=== PATIENT | female | born 1935 | race Caucasian/White ===

== ENCOUNTER 2017-04-20 11:49 | Emergency (ER) | payer MEDICARE, OTHER ==
[2017-04-20] MEDS ORDERED: Albuterol/Ipratropium 3.0-0.5 MG/3 ML Neb Soln NEB ONE (12:25)
--- NOTE | 2017-04-20 12:31 | EDM.PDOC ---
ED HPI GENERAL MEDICAL PROBLEM - General Chief Complaint: Respiratory Problem Stated Complaint: SOB Time Seen by Provider: 04/20/17 12:06 Source of Information: Reports: Patient, Family History Limitations: Reports: No Limitations - History of Present Illness INITIAL COMMENTS - FREE TEXT/NARRATIVE: The patient is an 82-year-old female who comes in with a chief complaint of cough. The patient states she's felt ill for over a week now. She's had a cough. It is sometimes productive. She has some mild shortness of breath associated with the cough. No chest pain. No known fever. She did see a provider at a walk-in clinic about 6 days ago she was prescribed albuterol and a steroid taper and has been taking these as prescribed but feels that she is getting worse. No pain with inspiration. No abdominal pain or vomiting or diarrhea. No urinary symptoms. No lower extremity pain or swelling. - Related Data Allergies Allergy/AdvReac Type Severity Reaction Status Date / Time Penicillins Allergy Cannot Verified 04/20/17 11:54 Remember Home Meds: Home Meds Aspirin [Halfprin] 81 mg PO DAILY 09/22/13 [History] Losartan [Cozaar] 50 mg PO DAILY 09/22/13 [History] Albuterol Sulfate 1.25 mg IH 04/20/17 [History] Amitriptyline [Elavil] 25 mg PO BEDTIME 04/20/17 [History] Benzonatate [Tessalon Perles] 100 mg PO BID PRN #30 cap 04/20/17 [Rx] Doxycycline [Vibramycin] 100 mg PO Q12HR #24 cap 04/20/17 [Rx] Methylprednisolone [IJD: Methylprednisolone] 4 mg PO 04/20/17 [History] Social & Family History - Tobacco Use Smoking Status *Q: Never Smoker Second Hand Smoke Exposure: No - Alcohol Use Days Per Week of Alcohol Use: 0 - Recreational Drug Use Recreational Drug Use: No ED ROS GENERAL - Review of Systems Review Of Systems: See Below Constitutional: Denies: Fever HEENT: Reports: No Symptoms Respiratory: Reports: Shortness of Breath, Cough Cardiovascular: Denies: Chest Pain, Edema Endocrine: Reports: No Symptoms GI/Abdominal: Reports: No Symptoms. Denies: Vomiting : Reports: No Symptoms Musculoskeletal: Reports: No Symptoms Skin: Reports: No Symptoms Neurological: Reports: No Symptoms Psychiatric: Reports: No Symptoms Hematologic/Lymphatic: Reports: No Symptoms ED EXAM, GENERAL - Physical Exam Exam: See Below Exam Limited By: No Limitations General Appearance: Alert, WD/WN, No Apparent Distress Eye Exam: Bilateral Eye: Normal Inspection Ears: Normal External Exam Nose: Normal Inspection Throat/Mouth: Normal Inspection, Normal Oropharynx, No Airway Compromise, Other (hoarse voice) Head: Atraumatic, Normocephalic Neck: Normal Inspection, Supple, Non-Tender Respiratory/Chest: No Accessory Muscle Use, Chest Non-Tender, Other (few scattered wheezes and crackles) Cardiovascular: Normal Peripheral Pulses, No Edema, No Murmur, No Rub, Irregularly Irregular GI/Abdominal: Soft, Non-Tender, No Distention. No: Rebound Back Exam: Normal Inspection Extremities: Normal Inspection. No: Pedal Edema Neurological: Alert, Oriented, Normal Cognition, No Motor/Sensory Deficits Psychiatric: Normal Affect, Normal Mood Skin Exam: Warm, Dry, Intact, Normal Color, No Rash Course - Vital Signs Last Recorded V/S: Last Vital Signs Temp 36.4 C 04/20/17 11:54 Pulse 100 04/20/17 11:54 Resp 26 H 04/20/17 11:54 BP 120/77 04/20/17 11:54 Pulse Ox 96 04/20/17 12:25 - Orders/Labs/Meds Orders: Active Orders 24 hr Category Date Time Status EKG 12 Lead [EKG Documentation Completion] [RC] STAT Care 04/20/17 12:25 Active RT Aerosol Therapy [RC] ASDIRECTED Care 04/20/17 12:25 Active Chest 1V Frontal [CR] Stat Exams 04/20/17 12:25 Taken CULTURE BLOOD [BC] Stat Lab 04/20/17 12:45 Received CULTURE BLOOD [BC] Stat Lab 04/20/17 13:00 Received Blood Culture x2 Reflex Set [OM.PC] Stat Oth 04/20/17 12:25 Ordered Labs: Laboratory Tests 04/20/17 04/20/17 04/20/17 Range/Units 12:45 12:45 12:45 WBC 10.01 (3.98-10.04) K/mm3 RBC 3.74 L (3.98-5.22) M/mm3 Hgb 12.5 (11.2-15.7) gm/L Hct 37.5 (34.1-44.9) % MCV 100.3 H (79.4-94.8) fl MCH 33.4 H (25.6-32.2) pg MCHC 33.3 (32.2-35.5) g/dl RDW Std Deviation 43.8 (36.4-46.3) fL Plt Count 259 (182-369) K/mm3 MPV 10.3 (9.4-12.3) fl Neut % (Auto) 70.7 (34.0-71.1) % Lymph % (Auto) 10.4 L (19.3-51.7) % [place] % (Auto) 18.3 H (4.7-12.5) % Eos % (Auto) 0.1 L (0.7-5.8) Baso % (Auto) 0.2 (0.1-1.2) % Neut # (Auto) 7.08 H (1.56-6.13) K/mm3 Lymph # (Auto) 1.04 L (1.18-3.74) K/mm3 [place] # (Auto) 1.83 H (0.24-0.36) K/mm3 Eos # (Auto) 0.01 L (0.04-0.36) K/mm3 Baso # (Auto) 0.02 (0.01-0.08) K/mm3 Manual Slide Review Abnormal smear Sodium 140 (136-145) mEq/L Potassium 4.0 (3.5-5.1) mEq/L Chloride 104 (98-107) mEq/L Carbon Dioxide 27 (21-32) mEq/L Anion Gap 13.0 (5-15) BUN 17 (7-18) mg/dL Creatinine 1.0 (0.55-1.02) mg/dL Est Cr Clr Drug Dosing 35.49 mL/min Estimated GFR (MDRD) 53 (>60) mL/min BUN/Creatinine Ratio 17.0 (14-18) Glucose 112 (83-115) mg/dL Lactic Acid 1.5 (0.4-2.0) mmol/L Calcium 9.3 (8.5-10.1) mg/dL Total Bilirubin 0.9 (0.2-1.0) mg/dL AST 19 (15-37) U/L ALT 25 (14-59) U/L Alkaline Phosphatase 54 (46-116) U/L Troponin I < 0.017 (0.00-0.056) ng/mL NT-Pro-B Natriuret Pep 907 H (0-450) pg/mL Total Protein 7.3 (6.4-8.2) g/dl Albumin 3.2 L (3.4-5.0) g/dl Globulin 4.1 gm/dL Albumin/Globulin Ratio 0.8 L (1-2) Meds: Medications Discontinued Medications Generic Name Dose Route Start Last Admin Trade Name Freq PRN Reason Stop Dose Admin Albuterol/Ipratropium 3 ml 04/20/17 12:25 04/20/17 12:36 Duoneb 3.0-0.5 Mg/3 Ml NEB 04/20/17 12:26 3 ml ONETIME ONE Administration Doxycycline Hyclate 100 mg 04/20/17 13:42 Vibramycin PO 04/20/17 13:43 ONETIME ONE - Re-Assessments/Exams Free Text/Narrative Re-Assessment/Exam: 04/20/17 13:49 EKG shows NSR with some atrial premature complexes. No significant ST/T abnormality. Intervals normal. CXR shows RLL atelectasis slightly increased compared to prior. Mild interestitial prominence. Labs all normal. Suspect bronchitis. Given her age and failure to improve with steroids/albuterol, will treat with doxycycline. Discussed return precautions and need for follow-up. Departure - Departure Time of Disposition: 13:51 Disposition: Home, Self-Care 01 Clinical Impression: Bronchitis - Discharge Information Prescriptions: Doxycycline [Vibramycin] 100 mg PO Q12HR #24 cap Benzonatate [Tessalon Perles] 100 mg PO BID PRN #30 cap PRN Reason: Cough Referrals: PCP,None [Primary Care Provider] - Forms: ED Department Discharge Additional Instructions: 1. Take doxycycline (antibiotic) as prescribed. Next dose should be tonight before bedtime. Take at least an hour before going to bed - it can irritate your esophagus if you take it and then immediately lie down. 2. Take tessalon as prescribed for cough. 3. Countinue medrol and albuterol as prescribed by your previous physician 4. Follow up with the primary care physician of your choice next week if you aren't feeling better 5. Return to the Emergency Department for any worsening or new concerning symptoms, including difficulty breathing, worsening cough/shortness of breath, fever, or any other concerning symptoms - My Orders Last 24 Hours: My Active Orders 04/20/17 12:25 EKG 12 Lead [EKG Documentation Completion] [RC] STAT RT Aerosol Therapy [RC] ASDIRECTED Chest 1V Frontal [CR] Stat Blood Culture x2 Reflex Set [OM.PC] Stat 04/20/17 12:45 CULTURE BLOOD [BC] Stat 04/20/17 13:00 CULTURE BLOOD [BC] Stat - Assessment/Plan Last 24 Hours: My Active Orders 04/20/17 12:25 EKG 12 Lead [EKG Documentation Completion] [RC] STAT RT Aerosol Therapy [RC] ASDIRECTED Chest 1V Frontal [CR] Stat Blood Culture x2 Reflex Set [OM.PC] Stat 04/20/17 12:45 CULTURE BLOOD [BC] Stat 04/20/17 13:00 CULTURE BLOOD [BC] Stat
[2017-04-20] MEDS ORDERED: Doxycycline 100 MG Cap PO ONE (13:42)
--- NOTE | 2017-04-22 08:34 | CR ---
Chest: Portable view of the chest was obtained. Comparison: Prior chest x-ray of 11/26/16. Heart size and mediastinum are within normal limits for portable technique. Mild tortuosity of the thoracic aorta is seen. Lungs are clear with no acute infiltrates. Slight scoliosis noted within the spine with degenerative change. Surgical clips are noted from prior cholecystectomy. Mild deformity of the proximal right humerus is seen compatible with old healed fracture. Impression: 1. Incidental findings. Nothing acute is appreciated on portable chest x-ray. No significant change is seen from prior chest x-ray. Diagnostic code #2
== END 2017-04-20 14:09 | disposition home or self-care (01) ==
LOC: JD.ED 11:49
DX: J40 Bronchitis, not specified as acute or chronic (principal); Z88.0 Allergy status to penicillin; Z79.82 Long term (current) use of aspirin; Z79.899 Other long term (current) drug therapy
CPT/HCPCS: 36415; 71010; 80053; 83605; 83880; 84484; 85025; 87040; 93005; 94640; 99284; A9270; 93010

== ENCOUNTER 2017-06-04 12:39 | Inpatient (IN) | payer MEDICARE, OTHER ==
[2017-06-04] MEDS ORDERED: Sodium Chloride 0.9% 10 ML Syringe FLUSH PRN (12:54)
[2017-06-04] MEDS ORDERED: Albuterol/Ipratropium 3.0-0.5 MG/3 ML Neb Soln NEB ONE (12:55)
[2017-06-04] MEDS ORDERED: Levofloxacin/Dextrose 5%-Water 750 MG in Premix Bag 1 BAG IV ONE (12:56)
[2017-06-04] MEDS ORDERED: Sodium Chloride 0.9% 1,000 ML IV SCH (13:00)
[2017-06-04] MEDS ORDERED: Sodium Chloride 0.9% 1,000 ML IV ONE (13:24)
--- NOTE | 2017-06-04 15:12 | CR ---
Chest: Two views of the chest were obtained. Comparison: Prior chest x-ray of 04/20/17 and 11/26/16. Increased perihilar markings on the right side are seen from prior study presumably due to bronchopneumonia. Left lung is clear. Heart size is normal. Tortuous thoracic aorta is seen. Disc space narrowing is scattered within thoracic spine with scattered endplate osteophytes and mild scoliosis. Surgical clips are seen within the upper right abdomen. Vascular calcification is seen. Impression: 1. Increased perihilar markings in the right side most likely due to bronchopneumonia. 2. Other incidental findings as noted above. Diagnostic code #3
--- NOTE | 2017-06-04 16:19 | EDM.PDOC ---
ED HPI GENERAL MEDICAL PROBLEM - General Chief Complaint: Respiratory Problem Stated Complaint: TROUBLE BREATHING Time Seen by Provider: 06/04/17 12:47 Source of Information: Reports: Patient, Family History Limitations: Reports: No Limitations - History of Present Illness INITIAL COMMENTS - FREE TEXT/NARRATIVE: The patient presents with her daughter for cough, chills, and weakness. This has been going on for a few months. She was on some albuterol. She has a productive cough, shortness of breath, chills, and generalized weakness. She is not eating much because she has no appetite and when she does eat, she will cough and gag or vomit. She has no chest pain. Her daughter says she is moderately confused and the patient admits to that. She has some pain to the right side. She has no dysuria. She did get better towards the begining of May and now she is worse. Onset: Gradual Duration: Day(s): Location: Reports: Abdomen (Right lateral abdomen and right lower chest) Quality: Reports: Sharp Severity: Moderate Improves with: Reports: None Worsens with: Reports: None Associated Symptoms: Reports: Chest Pain, Cough, cough w sputum, Fever/Chills, Nausea/Vomiting, Shortness of Breath abdominal/side pain Pain Score (Numeric/FACES): 3 - Related Data Allergies Allergy/AdvReac Type Severity Reaction Status Date / Time Penicillins Allergy Cannot Verified 06/04/17 12:51 Remember Home Meds: Home Meds Aspirin [Halfprin] 81 mg PO DAILY 09/22/13 [History] Losartan [Cozaar] 50 mg PO DAILY 09/22/13 [History] Albuterol Sulfate 1.25 mg IH ASDIRECTED PRN 04/20/17 [History] Amitriptyline [Elavil] 25 mg PO BEDTIME 04/20/17 [History] Cholecalciferol (Vitamin D3) [Vitamin D3] 1,000 unit PO DAILY 06/04/17 [History] Past Medical History HEENT History: Reports: Impaired Vision Respiratory History: Reports: Asthma, Bronchitis, Recurrent, COPD, Other (See Below) Other Respiratory History: COLD Gastrointestinal History: Reports: Cholelithiasis, Helicobacter Pylori Genitourinary History: Reports: None 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 Denies: Fever HEENT: Reports: No Symptoms Respiratory: Reports: Shortness of Breath, Cough Cardiovascular: Reports: Chest Pain Endocrine: Reports: No Symptoms GI/Abdominal: Reports: Abdominal Pain, Vomiting. Denies: Nausea : Reports: No Symptoms Musculoskeletal: Reports: No Symptoms ED EXAM, GENERAL - Physical Exam Exam: See Below Exam Limited By: No Limitations General Appearance: Alert, No Apparent Distress Ears: Normal External Exam Nose: Normal Inspection Head: Atraumatic, Normocephalic Neck: Normal Inspection Respiratory/Chest: No Respiratory Distress, Decreased Breath Sounds, Rhonchi Cardiovascular: Regular Rate, Rhythm, No Edema, No Murmur GI/Abdominal: Soft, Non-Tender, No Organomegaly, No Mass Back Exam: Normal Inspection Extremities: Normal Inspection Course - Vital Signs Last Recorded V/S: Last Vital Signs Temp 98.4 F 06/04/17 12:40 Pulse 72 06/04/17 12:40 Resp 20 06/04/17 12:40 BP 128/100 H 06/04/17 12:40 Pulse Ox 92 L 06/04/17 13:28 - Orders/Labs/Meds Orders: Active Orders 24 hr Category Date Time Status Cardiac Monitoring [RC] . DIRECTED Care 06/04/17 12:54 Active Oxygen Therapy [RC] PRN Care 06/04/17 12:54 Active Peripheral IV Care [RC] . DIRECTED Care 06/04/17 12:55 Active RT Aerosol Therapy [RC] ASDIRECTED Care 06/04/17 12:55 Active CULTURE BLOOD [BC] Stat Lab 06/04/17 13:30 Received CULTURE BLOOD [BC] Stat Lab 06/04/17 13:45 Received Sodium Chloride 0.9% [Saline Flush] Med 06/04/17 12:54 Active 10 ml FLUSH ASDIRECTED PRN Blood Culture x2 Reflex Set [OM.PC] Stat Oth 06/04/17 12:56 Ordered Peripheral IV Insertion Adult [OM.PC] Stat Oth 06/04/17 12:54 Ordered Medication Orders Sodium Chloride (Saline Flush) 10 ml FLUSH ASDIRECTED PRN PRN Reason: Keep Vein Open Last Admin: 06/04/17 14:02 Dose: 10 ml Labs: Laboratory Tests 06/04/17 06/04/17 06/04/17 Range/Units 13:30 13:30 15:35 WBC 11.65 H (3.98-10.04) K/mm3 RBC 3.77 L (3.98-5.22) M/mm3 Hgb 12.2 (11.2-15.7) gm/L Hct 36.5 (34.1-44.9) % MCV 96.8 H (79.4-94.8) fl MCH 32.4 H (25.6-32.2) pg MCHC 33.4 (32.2-35.5) g/dl RDW Std Deviation 42.1 (36.4-46.3) fL Plt Count 366 (182-369) K/mm3 MPV 9.7 (9.4-12.3) fl Neut % (Auto) 81.7 H (34.0-71.1) % Lymph % (Auto) 6.4 L (19.3-51.7) % [place] % (Auto) 11.3 (4.7-12.5) % Eos % (Auto) 0.1 L (0.7-5.8) Baso % (Auto) 0.2 (0.1-1.2) % Neut # (Auto) 9.53 H (1.56-6.13) K/mm3 Lymph # (Auto) 0.74 L (1.18-3.74) K/mm3 [place] # (Auto) 1.32 H (0.24-0.36) K/mm3 Eos # (Auto) 0.01 L (0.04-0.36) K/mm3 Baso # (Auto) 0.02 (0.01-0.08) K/mm3 Manual Slide Review Abnormal smear Sodium 136 (136-145) mEq/L Potassium 2.9 L (3.5-5.1) mEq/L Chloride 100 (98-107) mEq/L Carbon Dioxide 26 (21-32) mEq/L Anion Gap 12.9 (5-15) BUN 17 (7-18) mg/dL Creatinine 1.2 H (0.55-1.02) mg/dL Est Cr Clr Drug Dosing 29.57 mL/min Estimated GFR (MDRD) 43 (>60) mL/min BUN/Creatinine Ratio 14.2 (14-18) Glucose 142 H (83-115) mg/dL Calcium 8.9 (8.5-10.1) mg/dL Total Bilirubin 1.6 H (0.2-1.0) mg/dL AST 43 H (15-37) U/L ALT 60 H (14-59) U/L Alkaline Phosphatase 133 H (46-116) U/L Total Protein 7.3 (6.4-8.2) g/dl Albumin 2.9 L (3.4-5.0) g/dl Globulin 4.4 gm/dL Albumin/Globulin Ratio 0.7 L (1-2) Urine Color Yellow (Yellow) Urine Appearance Clear (Clear) Urine pH 6.0 (5.0-8.0) Ur Specific [place] 1.025 (1.005-1.030) Urine Protein 2+ H (Negative) Urine Glucose (UA) Trace H (Negative) Urine Ketones Trace H (Negative) Urine Occult Blood Negative (Negative) Urine Nitrite Negative (Negative) Urine Bilirubin 1+ H (Negative) Urine Urobilinogen 1.0 (0.2-1.0) Ur Leukocyte Esterase Trace H (Negative) Urine RBC 0-5 (0-5) /hpf Urine WBC 0-5 (0-5) /hpf Ur Epithelial Cells Not seen (0-5) /hpf Urine Bacteria Not seen (FEW) /hpf Urine Mucus Few (FEW) /hpf Meds: Medications Generic Name Dose Route Start Last Admin Trade Name Freq PRN Reason Stop Dose Admin Sodium Chloride 10 ml 06/04/17 12:54 06/04/17 14:02 Saline Flush FLUSH 10 ml ASDIRECTED PRN Administration Keep Vein Open Discontinued Medications Generic Name Dose Route Start Last Admin Trade Name Freq PRN Reason Stop Dose Admin Albuterol/Ipratropium 3 ml 06/04/17 12:55 06/04/17 13:27 Duoneb 3.0-0.5 Mg/3 Ml NEB 06/04/17 12:56 3 ml ONETIME ONE Administration Levofloxacin/Dextrose 750 mg/ 150 mls @ 100 mls/hr 06/04/17 12:56 06/04/17 14 :02 Premix IV 06/04/17 14:25 100 mls/hr ONETIME ONE Administration Sodium Chloride 1,000 mls @ 1,000 mls/hr 06/04/17 13:00 Normal Saline IV .BOLUS NAYELI Sodium Chloride 1,000 mls @ 1,000 mls/hr 06/04/17 13:24 06/04/17 14:01 Normal Saline IV 06/04/17 14:23 1,000 mls/hr ONETIME ONE Administration - Re-Assessments/Exams Free Text/Narrative Re-Assessment/Exam: 06/04/17 16:23 I ordered an IV NS at 125mL/hr, labs, CXR, blood cultures and levaquin 750mg IV. Her WBC was elevated at 11.65. Her K was low at 2.9. Her creatinine was elevated at 1.2. Her glucose was elevated at 142. Her total bili was elevated at 1.6. Her AST was elevated at 43. Her ALT was elevated at 60. Her Alk Phos was elevated at 133. Her influenza was negative and her UA shows no UTI. Her CXR shows right increased perihilar markings in the right side most likely due to bronchopneumonia. She has pneumonia and she has confusion with some electrolyte abnormalities. I feel she needs to be admitted. She was also on doxycycline toward the end of April and she did not get any better. I called Dr Hernandes and she agreed to the admission. Departure - Departure Time of Disposition: 16:30 Disposition: Admitted As Inpatient 68 Condition: Serious Clinical Impression: Hypokalemia Pneumonia Qualifiers: Pneumonia type: due to unspecified organism Laterality: right Lung location: middle lobe of lung Qualified Code(s): J18.1 - Lobar pneumonia, unspecified organism - Discharge Information Referrals: Denise Celaya MD [Primary Care Provider] - Forms: ED Department Discharge - My Orders Last 24 Hours: My Active Orders 06/04/17 12:54 Cardiac Monitoring [RC] . DIRECTED Oxygen Therapy [RC] PRN Sodium Chloride 0.9% [Saline Flush] 10 ml FLUSH ASDIRECTED PRN Peripheral IV Insertion Adult [OM.PC] Stat 06/04/17 12:55 Peripheral IV Care [RC] . DIRECTED RT Aerosol Therapy [RC] ASDIRECTED 06/04/17 12:56 Blood Culture x2 Reflex Set [OM.PC] Stat 06/04/17 13:30 CULTURE BLOOD [BC] Stat 06/04/17 13:45 CULTURE BLOOD [BC] Stat - Assessment/Plan Last 24 Hours: My Active Orders 06/04/17 12:54 Cardiac Monitoring [RC] . DIRECTED Oxygen Therapy [RC] PRN Sodium Chloride 0.9% [Saline Flush] 10 ml FLUSH ASDIRECTED PRN Peripheral IV Insertion Adult [OM.PC] Stat 06/04/17 12:55 Peripheral IV Care [RC] . DIRECTED RT Aerosol Therapy [RC] ASDIRECTED 06/04/17 12:56 Blood Culture x2 Reflex Set [OM.PC] Stat 06/04/17 13:30 CULTURE BLOOD [BC] Stat 06/04/17 13:45 CULTURE BLOOD [BC] Stat
--- NOTE | 2017-06-04 16:56 | PCM.HP ---
H&P History of Present Illness - General Date of Service: 06/04/17 Admit Problem/Dx: Admission Diagnosis/Problem Admission Diagnosis/Problem Pneumonia Source of Information: Patient, Provider - History of Present Illness Initial Comments - Free Text/Narative: 82 year old female with respiartory infection treated with Doxycycline April 2017, presents with malaise, weakness and a productive cough. She describes chills, a fever has not been documented. The patient states that she has a decrease appetite, her symptoms have been ongoing for several weeks. Overall, she has been feeling ill for the last week. Her daughter noted that she has been confused. A CXR suggest a a right sided infiltrate. Laboratory studies document an acute infection, electrolyte abnormalities and dehydration. [facility] be [facility]. Onset of Symptoms: Reports: Unknown/Unsure Duration of Symptoms: Reports: Week(s):, Getting Worse Location: Reports: Chest, Generalized Quality: Reports: Same as Previous Episode Severity: Moderate Improves with: Reports: Medication Worsens with: Reports: None Context: Reports: Sick Contact (unknown) Associated Symptoms: Reports: Confusion, Fever/Chills, Loss of Appetite, Malaise , Weakness abdominal/side pain Pain Score (Numeric/FACES): 3 - Related Data Allergies/Adverse Reactions: Allergies Allergy/AdvReac Type Severity Reaction Status Date / Time No Known Allergies Allergy Verified 06/04/17 18:23 Home Medications: Home Meds Aspirin [Halfprin] 81 mg PO DAILY 09/22/13 [History] Losartan [Cozaar] 50 mg PO DAILY 09/22/13 [History] Albuterol Sulfate 1.25 mg IH ASDIRECTED PRN 04/20/17 [History] Amitriptyline [Elavil] 25 mg PO BEDTIME 04/20/17 [History] Cholecalciferol (Vitamin D3) [Vitamin D3] 1,000 unit PO DAILY 06/04/17 [History] Past Medical History HEENT History: Reports: Impaired Vision Respiratory History: Reports: Asthma, Bronchitis, Recurrent, COPD, Other (See Below) Other Respiratory History: COLD Gastrointestinal History: Reports: Cholelithiasis, Helicobacter Pylori Genitourinary History: Reports: None 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 Musculoskeletal History: Reports: Arthritis - Past Surgical History GI Surgical History: Reports: Appendectomy, Cholecystectomy Social & Family History - Family History Family Medical History: Noncontributory - Tobacco Use Smoking Status *Q: Never Smoker Second Hand Smoke Exposure: No - Caffeine Use Caffeine Use: Reports: Coffee - Alcohol Use Days Per Week of Alcohol Use: 0 - Recreational Drug Use Recreational Drug Use: No H&P Review of Systems - Review of Systems: Review Of Systems: See Below General: Reports: Chills, Malaise, Weakness, Decreased Appetite HEENT: Reports: No Symptoms Pulmonary: Reports: Shortness of Breath Cardiovascular: Reports: Chest Pain Gastrointestinal: Reports: Abdominal Pain, Decreased Appetite, Nausea Genitourinary: Reports: No Symptoms Musculoskeletal: Reports: No Symptoms Skin: Reports: No Symptoms Psychiatric: Reports: Confusion Neurological: Reports: No Symptoms Hematologic/Lymphatic: Reports: No Symptoms Immunologic: Reports: No Symptoms Exam - Exam Exam: See Below - Vital Signs Vital Signs: Last Vital Signs Temp 36.9 C 06/04/17 12:40 Pulse 72 06/04/17 12:40 Resp 20 06/04/17 12:40 BP 128/100 H 06/04/17 12:40 Pulse Ox 92 L 06/04/17 13:28 Weight: 63.503 kg - Exam Quality Assessment: Supplemental Oxygen General: Alert, Oriented, Cooperative HEENT: Conjunctiva Clear, Nares Patent, Normal Nasal Septum, Pupils Equal, Pupils Reactive, PERRLA Neck: Trachea Midline Lungs: Normal Respiratory Effort, Decreased Breath Sounds Cardiovascular: Regular Rate, Regular Rhythm GI/Abdominal Exam: Normal Bowel Sounds, Soft, Non-Tender, No Organomegaly, No Distention (Female) Exam: Deferred Rectal (Female) Exam: Deferred Back Exam: Normal Inspection Extremities: Normal Inspection, Non-Tender Skin: Warm Neurological: Cranial Nerves Intact Neuro Extensive - Mental Status: Alert, Normal Mood/Affect, Normal Cognition, Memory Intact Neuro Extensive - Motor, Sensory, Reflexes: CN II-XII Intact Psychiatric: Alert, Normal Affect, Normal Mood - Patient Data Result Diagrams: 06/04/17 13:30 06/04/17 13:30 *Q Meaningful Use (ADM) - VTE *Q VTE Criteria *Q: - Stroke *Q Stroke Criteria *Q: - AMI *Q AMI Criteria *Q: - Problem List (1) Hypokalemia SNOMED Code(s): 12008142 ICD Code: E87.6 - HYPOKALEMIA Status: Acute Current Visit: Yes (2) Pneumonia SNOMED Code(s): 079238795 ICD Code: J18.9 - PNEUMONIA, UNSPECIFIED ORGANISM Status: Acute Current Visit: Yes Qualifiers: Pneumonia type: due to unspecified organism Laterality: right Lung location: middle lobe of lung Qualified Code(s): J18.1 - Lobar pneumonia, unspecified organism (3) Atypical chest pain SNOMED Code(s): 521577704 ICD Code: R07.89 - OTHER CHEST PAIN Status: Acute Current Visit: No (4) COLD, Chronic obstructive lung disease SNOMED Code(s): 75251021 ICD Code: J44.9 - CHRONIC OBSTRUCTIVE PULMONARY DISEASE, UNSPECIFIED Status : Acute Current Visit: No Problem List Initiated/Reviewed/Updated: Yes Orders Last 24hrs: Active Orders 24 hr Category Date Time Status Admission Status [Patient Status] [ADT] Routine ADT 06/04/17 16:40 Active EKG Documentation Completion [RC] ASDIRECTED Care 06/04/17 16:42 Active EKG 12 Lead [EK] Routine Ther 06/04/17 16:42 Ordered Medication Orders Sodium Chloride (Saline Flush) 10 ml FLUSH ASDIRECTED PRN PRN Reason: Keep Vein Open Last Admin: 06/04/17 14:02 Dose: 10 ml Assessment/Plan Comment:: Impression: Acute respiratory infection, query CAP Leukocytosis History of COPD Dehydration Hypokalemia Plan: IVF IV ATB Replace electrolytes Resp infection eval Daily labs Home meds DVT/GI prophylaxis Consult PT/OT
[2017-06-04] MEDS ORDERED: Albuterol 0.083% 2.5 MG/3 ML Neb Soln NEB PRN (18:07)
[2017-06-04] MEDS ORDERED: hydrALAZINE 20 MG/ML SDV IVPUSH PRN (18:09)
[2017-06-04] MEDS ORDERED: Ondansetron 4 MG/2 ML SDV IVPUSH PRN (18:10)
[2017-06-04] MEDS ORDERED: Acetaminophen Soln 650 MG/20.3 ML UD Cup PO PRN (18:11)
[2017-06-04] MEDS: Sodium Chloride 0.9% 1,000 ML IV SCH (18:37)
[2017-06-04] MEDS ORDERED: Amitriptyline 25 MG Tab PO SCH (21:00)
[2017-06-04] MEDS: Potassium Chloride 20 MEQ Tab.ER PO SCH (21:05)
[2017-06-04] MEDS ORDERED: Magnesium Hydroxide 400 MG/5 ML Susp 30 ML Cup PO ONE (21:15)
[2017-06-04] MEDS: Albuterol/Ipratropium 3.0-0.5 MG/3 ML Neb Soln NEB SCH (21:41)
[2017-06-04] MEDS: Temazepam 15 MG Cap PO PRN (21:52)
[2017-06-05] MEDS: Sodium Chloride 0.9% 1,000 ML IV SCH (02:41)
[2017-06-05] MEDS: Albuterol/Ipratropium 3.0-0.5 MG/3 ML Neb Soln NEB SCH ×4 (05:49→21:37)
[2017-06-05] MEDS: Potassium Chloride 20 MEQ Tab.ER PO SCH ×3 (08:36→21:12)
[2017-06-05] MEDS: Aspirin 81 MG Tab.EC PO SCH (08:36)
[2017-06-05] MEDS ORDERED: Losartan 25 MG Tab PO SCH (09:00)
[2017-06-05] MEDS ORDERED: Enoxaparin 30 MG/0.3 ML Syringe SUBCUT SCH (09:00)
[2017-06-05] MEDS ORDERED: Bisacodyl 10 MG Supp RECTAL ONE (09:41)
[2017-06-05] MEDS ORDERED: Enoxaparin 40 MG/0.4 ML Syringe SUBCUT SCH (09:42)
[2017-06-05] MEDS: Codeine/Promethazine 10-6.25 MG/5 ML Syrup 5 ML UD Cup PO PRN ×2 (12:13→18:49)
[2017-06-05] MEDS: guaiFENesin 600 MG Tab.ER PO SCH ×2 (12:13→21:12)
[2017-06-05] MEDS: Citalopram 20 MG Tab PO SCH (13:38)
[2017-06-05] MEDS: Dronabinol 2.5 MG Cap PO SCH ×2 (13:38→21:13)
[2017-06-05] MEDS ORDERED: Amitriptyline 25 MG Tab PO SCH (21:00)
[2017-06-05] MEDS: Temazepam 15 MG Cap PO PRN (21:23)
[2017-06-06] MEDS: Albuterol/Ipratropium 3.0-0.5 MG/3 ML Neb Soln NEB SCH ×2 (06:02→09:39)
[2017-06-06] MEDS: Citalopram 20 MG Tab PO SCH (08:39)
[2017-06-06] MEDS: guaiFENesin 600 MG Tab.ER PO SCH (08:39)
[2017-06-06] MEDS: Aspirin 81 MG Tab.EC PO SCH (08:39)
[2017-06-06] MEDS: Potassium Chloride 20 MEQ Tab.ER PO SCH ×2 (08:39→15:59)
[2017-06-06] MEDS: Dronabinol 2.5 MG Cap PO SCH (08:40)
[2017-06-06] MEDS ORDERED: Polyethylene Glycol 3350 Powder 17 GM Packet PO ONE (09:08)
[2017-06-06] MEDS ORDERED: Docusate Sodium 100 MG Cap PO SCH (09:15)
--- NOTE | 2017-06-06 11:23 | PCM.DCSUM1 ---
Discharge Summary - Hospital Course Free Text/Narrative:: 82 year old female with respiartory infection treated with Doxycycline April 2017, presents with malaise, weakness and a productive cough. She describes chills, a fever has not been documented. The patient states that she has a decrease appetite, her symptoms have been ongoing for several weeks. Overall, she has been feeling ill for the last week. Her daughter noted that she has been confused. A CXR suggest a a right sided infiltrate. Laboratory studies document an acute infection, electrolyte abnormalities and dehydration. She will be admitted to [facility] for pneumonia. - Discharge Data Discharge Date: 06/06/17 (admit date 06/04/17) Discharge Disposition: Home, Self-Care 01 Condition: Good - Discharge Diagnosis/Problem(s) (1) Pneumonia SNOMED Code(s): 001898406 ICD Code: J18.9 - PNEUMONIA, UNSPECIFIED ORGANISM Status: Acute Priority : High Current Visit: Yes Qualifiers: Pneumonia type: due to unspecified organism Laterality: right Lung location: middle lobe of lung Qualified Code(s): J18.1 - Lobar pneumonia, unspecified organism (2) Hypokalemia SNOMED Code(s): 35753194 ICD Code: E87.6 - HYPOKALEMIA Status: Resolved Priority: High Current Visit: Yes (3) Reactive depression (situational) SNOMED Code(s): 56050808 ICD Code: F32.9 - MAJOR DEPRESSIVE DISORDER, SINGLE EPISODE, UNSPECIFIED Status: Acute Priority: High Current Visit: Yes - Patient Summary/Data Operative Procedure(s) Performed: None Complications: None Consults: Consultations 06/05/17 09:00 Consult to Occupational Therapy [OT Evaluation and Treatment] [CONS] Routine Consult to Physical Therapy [PT Evaluation and Treatment] [CONS] Routine Labs Pending at D/C: None Recommended Follow-up Testing/Procedures: Follow up with Dr. Celaya within one week of discharge Labs on Saturday06/10/17 to recheck potassium with results to PCP, Dr. Celaya for review. Continue with Incentive Spirometry at home Ambulate at least 3-4 times daily at home Planned Operative Procedure(s) after DC: None Hospital Course: Impression: Acute respiratory infection, query CAP -Repeat CXR tomorrow -IV abx -RT/Nebs/IS/FV Leukocytosis -Etiology early CAP -Cont to follow History of COPD Dehydration -IVF Hypokalemia -2.3 on admit, replace and monitor along with magnesium levels Reactive/Situational Depression-- 2 months ago, she is really struggling Start Celexa daily- f/up with PCP after discharge Plan: IVF IV ATB--Levaquin Replace electrolytes Resp infection eval; negative BC, S.Pneumo, Mycoplasma and Flu screen. Daily labs Home meds DVT/GI prophylaxis Consult PT/OT Likely DC in 1-2 days if doing well. Patient is DNR/DNI code status PCP is Dr. Celaya with [facility] - Patient Instructions Diet: Usual Diet as Tolerated, Drink 8-10+ Glasses/Day Activity: As Tolerated Showering/Bathing: May Shower Notify Provider of: Fever, Increased Pain, Nausea and/or Vomiting (worsening of cough, fever, weakness that is worsening) - Discharge Plan Prescriptions/Med Rec: Amitriptyline [Elavil] 50 mg PO BEDTIME #30 tablet Citalopram [Celexa] 20 mg PO DAILY #30 tablet Levofloxacin [Levaquin] 500 mg PO DAILY #7 tablet Potassium Chloride [Klor-Con M20] 40 meq PO BID #20 tab.er Home Medications: Home Meds Aspirin [Halfprin] 81 mg PO DAILY 09/22/13 [History] Losartan [Cozaar] 50 mg PO DAILY 09/22/13 [History] Albuterol Sulfate 1.25 mg IH ASDIRECTED PRN 04/20/17 [History] Cholecalciferol (Vitamin D3) [Vitamin D3] 1,000 unit PO DAILY 06/04/17 [History] Amitriptyline [Elavil] 50 mg PO BEDTIME #30 tablet 06/06/17 [Rx] Citalopram [Celexa] 20 mg PO DAILY #30 tablet 06/06/17 [Rx] Levofloxacin [Levaquin] 500 mg PO DAILY #7 tablet 06/06/17 [Rx] Potassium Chloride [Klor-Con M20] 40 meq PO BID #20 tab.er 06/06/17 [Rx] guaiFENesin [Mucinex] 1,200 mg PO BID tab.er 06/06/17 [Rx] Patient Handouts: Chronic Obstructive Pulmonary Disease, [id number], Community-Acquired Pneumonia, Adult, [id number] Forms: ED Department Discharge Referrals: Denise Celaya MD [Primary Care Provider] - - Discharge Summary/Plan Comment DC Time >30 min.: Yes (40 min) - General Info Date of Service: 06/06/17 Admission Dx/Problem (Free Text: Admission Diagnosis/Problem Admission Diagnosis/Problem Pneumonia Patient is doing much better. Cough and energy both significantly improved. She is eating with a good appetite now. Plans for DC home today. Functional Status: Reports: Pain Controlled, Tolerating Diet, Ambulating, Urinating, Incentive Spirometry. Denies: New Symptoms - Review of Systems General: Reports: Weakness (improved). Denies: Fever HEENT: Reports: No Symptoms Pulmonary: Reports: Cough (improved) Cardiovascular: Reports: No Symptoms Gastrointestinal: Reports: No Symptoms. Denies: Abdominal Pain, Diarrhea, Nausea, Vomiting Genitourinary: Reports: No Symptoms Neurological: Reports: No Symptoms Psychiatric: Reports: Depression (improving--better outlook today) - Patient Data Vitals - Most Recent: Last Vital Signs Temp 99.7 F 06/06/17 07:52 Pulse 85 06/06/17 08:37 Resp 17 06/06/17 07:52 BP 109/51 L 06/06/17 07:52 Pulse Ox 91 L 06/06/17 09:39 Orthostatic Blood Pressure [ 116/84 Standing] Orthostatic Blood Pressure [ 128/65 Sitting] Orthostatic Blood Pressure [ 126/89 Supine] Weight - Most Recent: 119 lb I&O - Last 24 hours: Intake & Output 06/05/17 06/06/17 06/06/17 22:59 06:59 14:59 Intake Total 1400 640 300 Output Total 550 1150 Balance 850 -510 300 Lab Results - Last 24 hrs: Laboratory Results - last 24 hr 06/06/17 06/06/17 Range/Units 05:30 05:30 WBC 8.22 (3.98-10.04) K/mm3 RBC 3.13 L (3.98-5.22) M/mm3 Hgb 10.1 L (11.2-15.7) gm/L Hct 31.3 L (34.1-44.9) % MCV 100.0 H (79.4-94.8) fl MCH 32.3 H (25.6-32.2) pg MCHC 32.3 (32.2-35.5) g/dl RDW Std Deviation 44.8 (36.4-46.3) fL Plt Count 379 H (182-369) K/mm3 MPV 9.7 (9.4-12.3) fl Neut % (Auto) 64.4 (34.0-71.1) % Lymph % (Auto) 20.1 (19.3-51.7) % [place] % (Auto) 12.3 (4.7-12.5) % Eos % (Auto) 2.9 (0.7-5.8) Baso % (Auto) 0.2 (0.1-1.2) % Neut # (Auto) 5.29 (1.56-6.13) K/mm3 Lymph # (Auto) 1.65 (1.18-3.74) K/mm3 [place] # (Auto) 1.01 H (0.24-0.36) K/mm3 Eos # (Auto) 0.24 (0.04-0.36) K/mm3 Baso # (Auto) 0.02 (0.01-0.08) K/mm3 Manual Slide Review Abnormal smear Sodium 139 (136-145) mEq/L Potassium 5.0 (3.5-5.1) mEq/L Chloride 108 H (98-107) mEq/L Carbon Dioxide 24 (21-32) mEq/L Anion Gap 12.0 (5-15) BUN 13 (7-18) mg/dL Creatinine 0.9 (0.55-1.02) mg/dL Est Cr Clr Drug Dosing 39.43 mL/min Estimated GFR (MDRD) > 60 (>60) mL/min BUN/Creatinine Ratio 14.4 (14-18) Glucose 112 (83-115) mg/dL Calcium 8.4 L (8.5-10.1) mg/dL Magnesium 1.7 L (1.8-2.4) mg/dl C-Reactive Protein 7.3 H* (<1.0) mg/dL SERGE Results - Last 24 hrs: Microbiology 06/04/17 20:00 Respiratory Virus Panel (PCR) (SERGE) - Final Nasopharyngeal Swab - Nare, Unspecified Med Orders - Current: Current Medications Acetaminophen (Tylenol) 650 mg PO Q6H PRN PRN Reason: Fever Albuterol (Proventil Neb Soln) 2.5 mg NEB Q4HRRT PRN PRN Reason: Shortness of Breath Albuterol/Ipratropium (Duoneb 3.0-0.5 Mg/3 Ml) 3 ml NEB QIDRT [facility] Last Admin: 06/06/17 09:39 Dose: 3 ml Amitriptyline HCl (Elavil) 50 mg PO BEDTIME [facility] Last Admin: 06/05/17 21:11 Dose: 50 mg Aspirin (Halfprin) 81 mg PO DAILY [facility] Last Admin: 06/06/17 08:39 Dose: 81 mg Citalopram Hydrobromide (Celexa) 20 mg PO DAILY [facility] Last Admin: 06/06/17 08:39 Dose: 20 mg Docusate Sodium (Colace) 100 mg PO DAILY [facility] Last Admin: 06/06/17 09:35 Dose: 100 mg Dronabinol (Marinol) 2.5 mg PO BID [facility] Last Admin: 06/06/17 08:40 Dose: 2.5 mg Enoxaparin Sodium (Lovenox) 40 mg SUBCUT DAILY [facility] Last Admin: 06/06/17 08:40 Dose: 40 mg Guaifenesin (Mucinex) 1,200 mg PO BID [facility] Last Admin: 06/06/17 08:39 Dose: 1,200 mg Hydralazine HCl (Apresoline) 20 mg IVPUSH Q6H PRN PRN Reason: Hypertension Levofloxacin/Dextrose 750 mg/ (Premix) 150 mls @ 100 mls/hr IV Q48H [facility] Losartan Potassium (Cozaar) 25 mg PO DAILY [facility] Last Admin: 06/05/17 08:41 Dose: 25 mg Ondansetron HCl (Zofran) 4 mg IVPUSH Q8H PRN PRN Reason: Nausea/Vomiting Potassium Chloride (Klor-Con M20) 40 meq PO TID [facility] Last Admin: 06/06/17 08:39 Dose: 40 meq Promethazine HCl/Codeine (Phenergan With Codeine) 10 ml PO Q6H PRN PRN Reason: Cough Last Admin: 06/05/17 18:49 Dose: 10 ml Sodium Chloride (Saline Flush) 10 ml FLUSH ASDIRECTED PRN PRN Reason: Keep Vein Open Last Admin: 06/04/17 14:02 Dose: 10 ml Temazepam (Restoril) 15 mg PO BEDTIME PRN PRN Reason: Sleep Last Admin: 06/05/17 21:23 Dose: 15 mg Discontinued Medications Albuterol/Ipratropium (Duoneb 3.0-0.5 Mg/3 Ml) 3 ml NEB ONETIME ONE Stop: 06/04/17 12:56 Last Admin: 06/04/17 13:27 Dose: 3 ml Amitriptyline HCl (Elavil) 25 mg PO BEDTIME [facility] Last Admin: 06/04/17 21:05 Dose: 25 mg Bisacodyl (Dulcolax) 10 mg RECTAL ONETIME ONE Stop: 06/05/17 09:42 Last Admin: 06/05/17 10:18 Dose: 10 mg Enoxaparin Sodium (Lovenox) 30 mg SUBCUT DAILY [facility] Last Admin: 06/05/17 08:36 Dose: 30 mg Levofloxacin/Dextrose 750 mg/ (Premix) 150 mls @ 100 mls/hr IV ONETIME ONE Stop: 06/04/17 14:25 Last Admin: 06/04/17 14:02 Dose: 100 mls/hr Sodium Chloride (Normal Saline) 1,000 mls @ 1,000 mls/hr IV .BOLUS [facility] Sodium Chloride (Normal Saline) 1,000 mls @ 1,000 mls/hr IV ONETIME ONE Stop: 06/04/17 14:23 Last Admin: 06/04/17 14:01 Dose: 1,000 mls/hr Sodium Chloride (Normal Saline) 1,000 mls @ 125 mls/hr IV ASDIRECTED [facility] Last Admin: 06/05/17 02:41 Dose: 125 mls/hr Magnesium Hydroxide (Milk Of Magnesia) 30 ml PO ONETIME ONE Stop: 06/04/17 21:16 Last Admin: 06/04/17 21:52 Dose: 30 ml Polyethylene Glycol (Miralax) 17 gm PO ONETIME ONE Stop: 06/06/17 09:09 Last Admin: 06/06/17 09:35 Dose: 17 gm - Exam Quality Assessment: Reports: DVT Prophylaxis General: Reports: Alert, Oriented, Cooperative, No Acute Distress HEENT: Reports: Pupils Equal, EOMI, Mucous Membr. Moist/[place] Neck: Reports: Supple Lungs: Reports: Clear to Auscultation, Normal Respiratory Effort, Decreased Breath Sounds (bases) Cardiovascular: Reports: Regular Rate, Regular Rhythm GI/Abdominal Exam: Normal Bowel Sounds, Soft, Non-Tender (Female) Exam: Deferred Rectal (Female) Exam: Deferred Extremities: Normal Inspection, No Pedal Edema, Normal Capillary Refill Neurological: Reports: No New Focal Deficit Psy/Mental Status: Reports: Alert, Normal Affect, Normal Mood *Q Meaningful Use (DIS) - VTE *Q VTE Criteria *Q: - Stroke *Q Stroke Criteria *Q: - AMI *Q AMI Criteria *Q:
[2017-06-06] MEDS ORDERED: Levofloxacin/Dextrose 5%-Water 750 MG in Premix Bag 1 BAG IV SCH (14:00)
--- NOTE | 2017-06-25 15:24 | PCM.PN ---
- General Info Date of Service: 06/05/17 Functional Status: Reports: Tolerating Diet - Review of Systems General: Reports: No Symptoms HEENT: Reports: No Symptoms Pulmonary: Reports: No Symptoms Cardiovascular: Reports: No Symptoms Gastrointestinal: Reports: No Symptoms Genitourinary: Reports: No Symptoms Musculoskeletal: Reports: No Symptoms Skin: Reports: No Symptoms Neurological: Reports: No Symptoms Psychiatric: Reports: No Symptoms - Patient Data Vitals - Most Recent: Last Vital Signs Temp 36.9 C 06/06/17 11:58 Pulse 85 06/06/17 11:58 Resp 18 06/06/17 11:58 BP 101/59 L 06/06/17 11:58 Pulse Ox 93 L 06/06/17 11:58 Orthostatic Blood Pressure [ 116/84 Standing] Orthostatic Blood Pressure [ 128/65 Sitting] Orthostatic Blood Pressure [ 126/89 Supine] Weight - Most Recent: 53.977 kg Med Orders - Current: Current Medications Discontinued Medications Acetaminophen (Tylenol) 650 mg PO Q6H PRN PRN Reason: Fever Albuterol (Proventil Neb Soln) 2.5 mg NEB Q4HRRT PRN PRN Reason: Shortness of Breath Albuterol/Ipratropium (Duoneb 3.0-0.5 Mg/3 Ml) 3 ml NEB ONETIME ONE Stop: 06/04/17 12:56 Last Admin: 06/04/17 13:27 Dose: 3 ml Albuterol/Ipratropium (Duoneb 3.0-0.5 Mg/3 Ml) 3 ml NEB QIDRT [facility] Last Admin: 06/06/17 09:39 Dose: 3 ml Amitriptyline HCl (Elavil) 25 mg PO BEDTIME [facility] Last Admin: 06/04/17 21:05 Dose: 25 mg Amitriptyline HCl (Elavil) 50 mg PO BEDTIME [facility] Last Admin: 06/05/17 21:11 Dose: 50 mg Aspirin (Halfprin) 81 mg PO DAILY [facility] Last Admin: 06/06/17 08:39 Dose: 81 mg Bisacodyl (Dulcolax) 10 mg RECTAL ONETIME ONE Stop: 06/05/17 09:42 Last Admin: 06/05/17 10:18 Dose: 10 mg Citalopram Hydrobromide (Celexa) 20 mg PO DAILY [facility] Last Admin: 06/06/17 08:39 Dose: 20 mg Docusate Sodium (Colace) 100 mg PO DAILY [facility] Last Admin: 06/06/17 09:35 Dose: 100 mg Dronabinol (Marinol) 2.5 mg PO BID [facility] Last Admin: 06/06/17 08:40 Dose: 2.5 mg Enoxaparin Sodium (Lovenox) 30 mg SUBCUT DAILY [facility] Last Admin: 06/05/17 08:36 Dose: 30 mg Enoxaparin Sodium (Lovenox) 40 mg SUBCUT DAILY [facility] Last Admin: 06/06/17 08:40 Dose: 40 mg Guaifenesin (Mucinex) 1,200 mg PO BID [facility] Last Admin: 06/06/17 08:39 Dose: 1,200 mg Hydralazine HCl (Apresoline) 20 mg IVPUSH Q6H PRN PRN Reason: Hypertension Levofloxacin/Dextrose 750 mg/ (Premix) 150 mls @ 100 mls/hr IV ONETIME ONE Stop: 06/04/17 14:25 Last Admin: 06/04/17 14:02 Dose: 100 mls/hr Sodium Chloride (Normal Saline) 1,000 mls @ 1,000 mls/hr IV .BOLUS [facility] Sodium Chloride (Normal Saline) 1,000 mls @ 1,000 mls/hr IV ONETIME ONE Stop: 06/04/17 14:23 Last Admin: 06/04/17 14:01 Dose: 1,000 mls/hr Levofloxacin/Dextrose 750 mg/ (Premix) 150 mls @ 100 mls/hr IV Q48H [facility] Last Admin: 06/06/17 15:58 Dose: Not Given Sodium Chloride (Normal Saline) 1,000 mls @ 125 mls/hr IV ASDIRECTED [facility] Last Admin: 06/05/17 02:41 Dose: 125 mls/hr Losartan Potassium (Cozaar) 25 mg PO DAILY [facility] Last Admin: 06/05/17 08:41 Dose: 25 mg Magnesium Hydroxide (Milk Of Magnesia) 30 ml PO ONETIME ONE Stop: 06/04/17 21:16 Last Admin: 06/04/17 21:52 Dose: 30 ml Ondansetron HCl (Zofran) 4 mg IVPUSH Q8H PRN PRN Reason: Nausea/Vomiting Polyethylene Glycol (Miralax) 17 gm PO ONETIME ONE Stop: 06/06/17 09:09 Last Admin: 06/06/17 09:35 Dose: 17 gm Potassium Chloride (Klor-Con M20) 40 meq PO TID [facility] Last Admin: 06/06/17 15:59 Dose: Not Given Promethazine HCl/Codeine (Phenergan With Codeine) 10 ml PO Q6H PRN PRN Reason: Cough Last Admin: 06/05/17 18:49 Dose: 10 ml Sodium Chloride (Saline Flush) 10 ml FLUSH ASDIRECTED PRN PRN Reason: Keep Vein Open Last Admin: 06/04/17 14:02 Dose: 10 ml Temazepam (Restoril) 15 mg PO BEDTIME PRN PRN Reason: Sleep Last Admin: 06/05/17 21:23 Dose: 15 mg - Exam Quality Assessment: DVT Prophylaxis General: Alert, Oriented, No Acute Distress HEENT: Pupils Equal, Pupils Reactive, EOMI Neck: Trachea Midline, No JVD Lungs: Normal Respiratory Effort Cardiovascular: Regular Rate GI/Abdominal Exam: Normal Bowel Sounds, Soft, Non-Tender, No Organomegaly, No Distention (Female) Exam: Deferred Back Exam: Normal Inspection Extremities: Normal Inspection Skin: Warm Neurological: No New Focal Deficit Psy/Mental Status: Alert - Problem List & Annotations (1) Hypokalemia SNOMED Code(s): 96607259 Code(s): E87.6 - HYPOKALEMIA Status: Resolved Priority: High (2) Pneumonia SNOMED Code(s): 504577839 Code(s): J18.9 - PNEUMONIA, UNSPECIFIED ORGANISM Status: Acute Priority: High Qualifiers: Pneumonia type: due to unspecified organism Laterality: right Lung location: middle lobe of lung Qualified Code(s): J18.1 - Lobar pneumonia, unspecified organism (3) Atypical chest pain SNOMED Code(s): 890183039 Code(s): R07.89 - OTHER CHEST PAIN Status: Acute (4) COLD, Chronic obstructive lung disease SNOMED Code(s): 37116200 Code(s): J44.9 - CHRONIC OBSTRUCTIVE PULMONARY DISEASE, UNSPECIFIED Status : Acute - Problem List Review Problem List Initiated/Reviewed/Updated: Yes - Plan Plan:: Impression: Acute respiratory infection, query CAP Leukocytosis History of COPD Dehydration Hypokalemia Plan: IVF IV ATB Replace electrolytes Resp infection eval Daily labs Home meds DVT/GI prophylaxis Consult PT/OT
== END 2017-06-06 13:58 | disposition home or self-care (01) | DRG 195 ==
LOC: JD.ED 12:39 → JD.MS 16:24 → INTOOBSV 16:24 → JD.MS 17:01 → OBSVTOIN 17:14 → JD.MS 18:11
PROVIDERS: ADMIT Internal Medicine Cardiovascular Disease; ATTEND Internal Medicine Cardiovascular Disease
DX: J18.9 Pneumonia, unspecified organism (principal); J44.9 Chronic obstructive pulmonary disease, unspecified; E87.6 Hypokalemia; E86.0 Dehydration; Z88.0 Allergy status to penicillin; R53.1 Weakness; F32.9 Major depressive disorder, single episode, unspecified; M19.90 Unspecified osteoarthritis, unspecified site; H54.7 Unspecified visual loss; Z79.82 Long term (current) use of aspirin; Z79.899 Other long term (current) drug therapy
CPT/HCPCS: 36415; 71046; 80053; 81001; 85025; 87040 ×2; 87804 ×2; 94640; 96361; 96365; 96366; 99285; J1956; J7040; J7050; 80048; 83735; 86140; 86738; 87486; 87581; 87633; 87798; 87899; 93010; 94760; 94761; 97112-GP; 97116-GP; 97162-GP; 97165-GO; 97530-GO; A9270-GY; J1650; Q0167

== ENCOUNTER 2018-10-12 15:54 | Emergency (ER) | payer MEDICARE, OTHER ==
[2018-10-12] MEDS ORDERED: HYDROmorphone 1 MG/ML Syringe IM ONE (16:25)
--- NOTE | 2018-10-12 16:31 | EDM.PDOC ---
ED HPI GENERAL MEDICAL PROBLEM - General Chief Complaint: Lower Extremity Injury/Pain Stated Complaint: FELL AT HOME DRIVE WAY Time Seen by Provider: 10/12/18 16:11 Source of Information: Reports: Patient, RN Notes Reviewed History Limitations: Reports: No Limitations - History of Present Illness INITIAL COMMENTS - FREE TEXT/NARRATIVE: Patient is an 83-year-old female who presents to the ED for evaluation of a right lower extremity injury. The patient notes that roughly 1 hour ago, she was standing on her deck and then just fell down. She states she did not feel any dizziness or lightheadedness prior to this fall. She states that she fell down onto her knees and her right elbow. After this fall the patient notes some sharp pains into her right hip, and right anterior thigh. The patient states that it is very painful to bear weight on the extremity. She does note the pain shoots all the way down her right leg. She would rate her pain at a 9 out of 10 today. She does not note any prior injury to this hip. She states that her primary care provider is Margot Syed. She notes an abrasion to the right knee, and right elbow. She denies any pain into her right elbow however. 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: Other (see below) Leg Pain Score (Numeric/FACES): 9 - Related Data Allergies Allergy/AdvReac Type Severity Reaction Status Date / Time No Known Allergies Allergy Verified 06/04/17 18:23 Home Meds: Home Meds Cholecalciferol (Vitamin D3) [Vitamin D3] 1,000 unit PO DAILY 06/04/17 [History] Amitriptyline [Elavil] 50 mg PO BEDTIME #30 tablet 06/06/17 [Rx] Albuterol Sulfate [Proventil Hfa] 1 puff INH DAILY 10/12/18 [History] Albuterol [Proventil Neb Soln] 3 ml INH ASDIRECTED 10/12/18 [History] Ascorbic Acid [Vitamin C] 500 mg PO DAILY 10/12/18 [History] Fish Oil/[place]-3 Fatty Acids [Fish Oil] 500 mg PO DAILY 10/12/18 [History] guaiFENesin [Mucinex] 1,200 mg PO BID PRN 10/12/18 [History] Past Medical History HEENT History: Reports: Impaired Vision Cardiovascular History: Reports: Hypertension, [place], Stents Respiratory History: Reports: Asthma, Bronchitis, Recurrent, COPD, Other (See Below) Other Respiratory History: COLD Gastrointestinal History: Reports: Cholelithiasis, Helicobacter Pylori Genitourinary History: Reports: None 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: Reports: None Musculoskeletal History: Reports: Arthritis Neurological History: Reports: None Psychiatric History: Reports: Depression, Other (See Below) Other Psychiatric History: insomnia; daughter questions depression since Hematologic History: Reports: None Immunologic History: Reports: None Dermatologic History: Reports: None - Infectious Disease History Infectious Disease History: Reports: C-Difficile, Mumps - Past Surgical History Cardiovascular Surgical History: Reports: Carotid Stents GI Surgical History: Reports: Appendectomy, Cholecystectomy Neurological Surgical History: Reports: Spinal Fusion, Other (See Below) Other Neurological Surgeries/Procedures: compressed disc Social & Family History - Family History Family Medical History: Noncontributory - Tobacco Use Smoking Status *Q: Never Smoker - Caffeine Use Caffeine Use: Reports: Coffee, Soda - Recreational Drug Use Recreational Drug Use: No Review of Systems - Review of Systems Review Of Systems: See Below Constitutional: Reports: No Symptoms Eyes: Reports: No Symptoms Ears: Reports: No Symptoms Nose: Reports: No Symptoms Mouth/Throat: Reports: No Symptoms Respiratory: Reports: No Symptoms Cardiovascular: Reports: No Symptoms GI/Abdominal: Reports: No Symptoms Genitourinary: Reports: No Symptoms Musculoskeletal: Reports: Leg Pain (R anterior thigh), Joint Pain (R hip) Skin: Reports: Wound (skin tear abrasion to R knee, and abrasion to R elbow) ED EXAM, GENERAL - Physical Exam Exam: See Below Exam Limited By: No Limitations General Appearance: Alert, WD/WN, No Apparent Distress Head: Atraumatic, Normocephalic Respiratory/Chest: No Respiratory Distress, Lungs Clear, Normal Breath Sounds, No Accessory Muscle Use, Chest Non-Tender Cardiovascular: Normal Peripheral Pulses, Regular Rate, Rhythm, No Murmur Back Exam: Normal Inspection Extremities: Normal Inspection, No Pedal Edema, Normal Capillary Refill, Limited Range of Motion (of right leg d/t pain, she does have pain with rotational movements and weight bearing) Neurological: Alert, Oriented, Normal Cognition, Normal Reflexes, No Motor/ Sensory Deficits Psychiatric: Normal Affect, Normal Mood Skin Exam: Warm, Dry, Normal Color, No Rash, Wound/Incision (R elbow: minor abrasion. R knee: skin tear abrasion roughly 1cm in size.) Course - Vital Signs Last Recorded V/S: Last Vital Signs Temp 97.2 F 10/12/18 16:02 Pulse 101 H 10/12/18 16:02 Resp 36 H 10/12/18 16:02 BP 172/129 H 10/12/18 16:02 Pulse Ox 100 10/12/18 16:02 - Orders/Labs/Meds Orders: Active Orders 24 hr Category Date Time Status Femur Min 2V Rt [CR] Stat Exams 10/12/18 16:24 Ordered Hip Min 2V or 3V w Pelvis Rt [CR] Stat Exams 10/12/18 16:24 Ordered Hip wo Cont Rt [CT] Stat Exams 10/12/18 17:46 Ordered Meds: Medications Discontinued Medications Generic Name Dose Route Start Last Admin Trade Name Freq PRN Reason Stop Dose Admin Hydromorphone HCl 0.5 mg 10/12/18 16:25 10/12/18 16:36 Dilaudid IM 10/12/18 16:26 0.5 mg ONETIME ONE Administration Hydromorphone HCl 0.5 mg 10/12/18 19:00 Dilaudid IVPUSH 10/12/18 19:01 ONETIME ONE - Re-Assessments/Exams Free Text/Narrative Re-Assessment/Exam: 10/12/18 16:32 Patient presents to the ED for evaluation of a right lower extremity injury. Have ordered a right hip/pelvis, and right femur x-ray for further evaluation. I have ordered 0.5 mg IM Dilaudid for pain relief. 10/12/18 17:44 Patient's x-rays have returned, there is no apparent abnormality of the patient' s femur x-ray, however the right hip x-ray is suspicious for a femoral neck fracture, that is impacted. These x-rays were reviewed by myself and Dr. Jacques. The patient will likely need to be transferred to [place] for further orthopedic management. 10/12/18 17:59 Dr. Jacques recommends getting a CT without contrast of the right hip. I did let the patient know what was going on, and she elects to go to [facility] in [place] for further orthopedic management. 10/12/18 19:[address] is done, and is read per [facility], they note a slightly impacted right femoral neck fracture. I am in contact with one call at [facility] for transfer. Dr. Vazquez is the Orthopedic surgeon documentation engineer. Departure - Departure Time of Disposition: 19:04 Disposition: DC/Tfer to Acute Hospital 02 Condition: Fair Clinical Impression: Fracture of femoral neck, right, closed Qualifiers: Encounter type: initial encounter Qualified Code(s): S72.001A - Fracture of unspecified part of neck of right femur, initial encounter for closed fracture - Discharge Information Referrals: Margot Syed NP [Primary Care Provider] - Forms: ED Department Discharge - My Orders Last 24 Hours: My Active Orders 10/12/18 16:24 Femur Min 2V Rt [CR] Stat Hip Min 2V or 3V w Pelvis Rt [CR] Stat 10/12/18 17:46 Hip wo Cont Rt [CT] Stat - Assessment/Plan Last 24 Hours: My Active Orders 10/12/18 16:24 Femur Min 2V Rt [CR] Stat Hip Min 2V or 3V w Pelvis Rt [CR] Stat 10/12/18 17:46 Hip wo Cont Rt [CT] Stat
[2018-10-12] MEDS ORDERED: HYDROmorphone 1 MG/ML Syringe IVPUSH ONE (19:00)
--- NOTE | 2018-10-13 06:34 | CR ---
Right femur: AP and lateral views of the distal right femur were obtained. Proximal portions were included on hip exam. Findings: Subcapital fracture that is noted on hip exam is not seen on this study. Bony structures are osteopenic. Vascular calcification is noted. Degenerative changes noted within the knee. Impression: 1. Incidental findings. Nothing acute is seen within the mid and distal right femur. Diagnostic code #2
--- NOTE | 2018-10-13 06:34 | CR ---
Right hip and pelvis: AP view of the pelvis was obtained as well as AP and lateral views of the right hip. Nondisplaced subcapital fracture is noted within the right hip. Degenerative change is noted within the spine. Previous lower lumbar spine surgery is seen. Bony structures are osteopenic. Vascular calcification is noted. Impression: 1. Subcapital fracture within the right hip. 2. Other incidental findings. Diagnostic code #3
--- NOTE | 2018-10-13 07:25 | CT ---
CT right hip Technique: Multiple axial sections through the right hip were obtained. Reconstructed coronal and sagittal images were reviewed. Findings: Mildly displaced and foreshortened subcapital fracture is noted within the right hip. Joint space within the right hip is preserved. No additional fracture is seen on this exam. Incidental spurring is noted within the pubic symphysis. Impression: 1. Mildly displaced and foreshortened fracture within the subcapital region of the right hip. 2. Other incidental findings. Diagnostic code #3 I agree with preliminary report from [facility], finalized on 10/12/18, 7:52 PM Central Time [facility]
== END 2018-10-12 20:10 ==
LOC: JD.ED 15:54
DX: S72.001A Fracture of unspecified part of neck of right femur, initial encounter for closed fracture (principal); I10 Essential (primary) hypertension; I25.2 Old myocardial infarction; J44.9 Chronic obstructive pulmonary disease, unspecified; F32.9 Major depressive disorder, single episode, unspecified; Z79.899 Other long term (current) drug therapy; W19.XXXA Unspecified fall, initial encounter
CPT/HCPCS: 51702; 73502; 73552; 73700; 96372; 96374; 99284; J1170

== ENCOUNTER 2020-06-07 21:25 | Emergency (ER) | payer MEDICARE, OTHER ==
--- NOTE | 2020-06-07 21:38 | EDM.PDOC ---
ED HPI GENERAL MEDICAL PROBLEM - General Chief Complaint: General Stated Complaint: cough LOW OXYGEN Time Seen by Provider: 06/07/20 21:38 - History of Present Illness INITIAL COMMENTS - FREE TEXT/NARRATIVE: 85-year-old female presents the emergency room with continued cough. Patient has Covid and received Regeneron yesterday. She comes in today because she cannot get her cough under control and is keeping her up at night. She has no other complaints at this time except she is tired of being sick she is breathing okay. Her cough is nonproductive. Not aware of any fevers or chills. No gastrointestinal side effects. Abdomen Pain Score (Numeric/FACES): 5 - Related Data Allergies Allergy/AdvReac Type Severity Reaction Status Date / Time No Known Allergies Allergy Verified 06/07/20 21:42 Home Meds: Home Meds Cholecalciferol (Vitamin D3) [Vitamin D3] 1,000 unit PO DAILY 06/04/17 [History] Amitriptyline [Elavil] 50 mg PO BEDTIME #30 tablet 06/06/17 [Rx] Albuterol Sulfate [Proventil Hfa] 1 puff INH DAILY 10/12/18 [History] Albuterol [Proventil Neb Soln] 3 ml INH ASDIRECTED 10/12/18 [History] Ascorbic Acid [Vitamin C] 500 mg PO DAILY 10/12/18 [History] Fish Oil/[place]-3 Fatty Acids [Fish Oil] 500 mg PO DAILY 10/12/18 [History] guaiFENesin [Mucinex] 1,200 mg PO BID PRN 10/12/18 [History] Benzonatate [Tessalon Perle] 100 mg PO TID #12 capsule 06/07/20 [Rx] Past Medical History HEENT History: Reports: Impaired Vision Cardiovascular History: Reports: Hypertension, [place], Stents Respiratory History: Reports: Asthma, Bronchitis, Recurrent, COPD, Other (See Below) Other Respiratory History: COLD Gastrointestinal History: Reports: Cholelithiasis, Helicobacter Pylori Genitourinary History: Reports: None HUMAN FACTORS SPECIALIST History: Reports: None Musculoskeletal History: Reports: Arthritis Neurological History: Reports: None Psychiatric History: Reports: Depression, Other (See Below) Other Psychiatric History: insomnia; daughter questions depression since Hematologic History: Reports: None Immunologic History: Reports: None Dermatologic History: Reports: None - Infectious Disease History Infectious Disease History: Reports: C-Difficile, Mumps - Past Surgical History Cardiovascular Surgical History: Reports: Carotid Stents GI Surgical History: Reports: Appendectomy, Cholecystectomy Neurological Surgical History: Reports: Spinal Fusion, Other (See Below) Other Neurological Surgeries/Procedures: compressed disc Social & Family History - Family History Family Medical History: No Pertinent Family History - Caffeine Use Caffeine Use: Reports: Coffee, Soda ED ROS GENERAL - Review of Systems Review Of Systems: See Below Constitutional: Reports: Malaise, Weakness HEENT: Reports: No Symptoms Respiratory: Reports: Cough. Denies: Shortness of Breath, Sputum Cardiovascular: Reports: No Symptoms GI/Abdominal: Reports: No Symptoms Musculoskeletal: Reports: No Symptoms Neurological: Reports: No Symptoms ED EXAM, GENERAL - Physical Exam Exam: See Below Exam Limited By: No Limitations General Appearance: Alert, No Apparent Distress Eye Exam: Bilateral Eye: Normal Inspection Ears: Normal External Exam, Normal Canal, Hearing Grossly Normal, Normal TMs Nose: Normal Inspection, Normal Mucosa, No Blood Throat/Mouth: Normal Inspection, Normal Lips, Normal Gums, Normal Oropharynx, Normal Voice, No Airway Compromise, Other (Is a few missing teeth no acute changes) Head: Atraumatic, Normocephalic Neck: Normal Inspection, Supple, Non-Tender, Full Range of Motion. No: Lymphadenopathy (L), Lymphadenopathy (R) Respiratory/Chest: No Respiratory Distress, Lungs Clear, Normal Breath Sounds Cardiovascular: Regular Rate, Rhythm, No Edema, No Murmur GI/Abdominal: Normal Bowel Sounds, Soft, Non-Tender Extremities: Normal Inspection, No Pedal Edema Course - Vital Signs Last Recorded V/S: Last Vital Signs Temp 36.8 C 06/07/20 21:42 Pulse 104 H 06/07/20 21:42 Resp 20 06/07/20 21:42 BP 185/110 H 06/07/20 21:42 Pulse Ox 95 06/07/20 21:42 - Re-Assessments/Exams Free Text/Narrative Re-Assessment/Exam: 06/07/20 22:13 She has good saturation ranging between 90 to 95% initially her pulse was little quick just over 100 but she seems to be staying in the 90s during the course of her visit here. I did advise the patient to start sleeping on her belly see if this helps and will start her on some Tessalon and see if this helps. Departure - Departure Time of Disposition: 22:14 Disposition: Home, Self-Care 01 Clinical Impression: COVID-19 - Discharge Information Referrals: Melvin Ramirez MD [Primary Care Provider] - Forms: ED Department Discharge Additional Instructions: Return to the emergency room with any questions problems or worsening symptoms. Start the Tessalon Perles take 1 every 8 hours this will help with your cough. Try sleeping on your belly and see if this helps. Sepsis Event Note (ED) - Focused Exam Vital Signs: Vital Signs Temp Pulse Resp BP Pulse Ox 06/07/20 21:42 36.8 C 104 H 20 185/110 H 95
[2020-06-07] MEDS ORDERED: Benzonatate 100 MG Cap PO ONE (22:11)
== END 2020-06-07 22:34 | disposition home or self-care (01) ==
LOC: JD.ED 21:25
DX: U07.1 COVID-19 (principal); J44.9 Chronic obstructive pulmonary disease, unspecified; I10 Essential (primary) hypertension; I25.2 Old myocardial infarction; F32.9 Major depressive disorder, single episode, unspecified; Z95.5 Presence of coronary angioplasty implant and graft; Z90.49 Acquired absence of other specified parts of digestive tract; Z79.899 Other long term (current) drug therapy
CPT/HCPCS: 99283; A9270; 99282

== ENCOUNTER 2022-02-10 14:26 | Emergency (ER) | payer MEDICARE, OTHER ==
[2022-02-10] MEDS ORDERED: Metoclopramide 10 MG/2 ML SDV IVPUSH ONE (15:19)
[2022-02-10] MEDS ORDERED: HYDROmorphone 0.5 MG/0.5 ML Syringe IVPUSH ONE (15:20)
[2022-02-10] MEDS ORDERED: Dextrose 5%-0.9% NaCl 1,000 ML IV SCH (15:30)
[2022-02-10 16:36] LABS: ESTIMATED GFR 56 mL/min (>60)
[2022-02-10] MEDS ORDERED: Sodium Chloride 0.9% 10 ML Syringe FLUSH PRN (17:40)
[2022-02-10] MEDS ORDERED: Iopamidol 612 MG/ML 100 ML Bottle IVPUSH ONE (17:40)
[2022-02-10] MEDS ORDERED: Magnesium Citrate Solution 296 ML Bottle PO ONE (18:44)
== END 2022-02-10 19:00 | disposition home or self-care (01) ==
LOC: JD.ED 14:26
DX: K59.01 Slow transit constipation (principal); I10 Essential (primary) hypertension
CPT/HCPCS: 36415; 71045; 74018; 74177; 76705; 80053; 81001; 82150; 82977; 83605; 83735; 83880; 84484; 85025; 85379; 85610; 85730; 86140; 87040; 93005; 96361; 96374; 96375; 99284; J1170; J2765; J3490; J7042; Q9967; 93010

== ENCOUNTER 2025-02-19 20:32 | Inpatient (IN) | payer MEDICARE, OTHER ==
[2025-02-19 20:51] LABS: BASOPHILS ABSOLUTE AUTO 0.0 K/mm3 (0.0-0.2); BASOPHILS PERCENT AUTO 0.5 % (0.0-1.0); EOSINOPHILS ABSOLUTE AUTO 0.2 K/mm3 (0.0-0.4); EOSINOPHILS PERCENT AUTO 2.6 % (0.0-6.0); IMMATURE GRAN ABSOLUTE AUTO 0.04 K/mm3 (0.00-0.05); IMMATURE GRAN PERCENT AUTO 0.5 % (0.0-0.4); LYMPHOCYTES ABSOLUTE AUTO 1.2 K/mm3 (1.0-4.8); LYMPHOCYTES PERCENT AUTO 14.1 % (24.0-44.0); MEAN PLATELET VOLUME 9.6 fl (9.4-12.3); MONOCYTES ABSOLUTE AUTO 1.0 K/mm3 (0.0-0.8); MONOCYTES PERCENT AUTO 11.6 % (0.0-8.0); NEUTROPHILS ABSOLUTE AUTO 6.1 K/mm3 (1.8-7.7); NEUTROPHILS PERCENT AUTO 70.7 % (41.0-71.0); NRBC ABSOLUTE 0.00 (0.00-0.02); NRBC PERCENT 0.0 % (0.0-0.2); PLATELET COUNT,PLT 221 K/mm3 (150-400); RED BLOOD CELL COUNT 3.29 M/mm3 (4.10-5.30); WHITE BLOOD CELL COUNT,WBC 8.56 K/mm3 (3.9-11.3)
[2025-02-19 21:16] LABS: A/G RATIO 0.9 (1-2); ALANINE AMINOTRANSFERASE,ALT 49.0 U/L (14-59); ASPARTATE AMNIOTRANSFERASE,AST 28.0 U/L (15-37); BILIRUBIN TOTAL 0.5 mg/dL (0.2-1.0); BLOOD UREA NITROGEN,BUN 23.0 mg/dL (7-18); CARBON DIOXIDE,CO2 27.0 mEq/L (21-32); CHLORIDE,CL 105.0 mEq/L (98-107); CREATININE 1.2 mg/dL (0.55-1.02); EST CRCL DRUG DOSING (CG) 28.52 mL/min; ESTIMATED GFR 44.0 mL/min (>60); GLUCOSE RANDOM 125.0 mg/dL (70-99); POTASSIUM,K 3.7 mEq/L (3.5-5.1); PROTEIN TOTAL,TP 6.4 g/dl (6.4-8.2); SODIUM,NA 141.0 mEq/L (136-145)
[2025-02-19 21:21] LABS: TROPONIN I HIGH SENSITIVITY 55.0 pg/mL (<=51)
[2025-02-19 22:56] LABS: APPEARANCE,URINE CLEAR (Clear); GLUCOSE,URINE NEGATIVE (Negative); OCCULT BLOOD,URINE TRACE-INTACT (Negative)
[2025-02-19] MEDS: Furosemide 40 MG/4 ML VIAL IVPUSH ONE (23:05)
[2025-02-19 23:07] LABS: SQUAMOUS EPITHELIAL CELLS,UR 0-5 /hpf (0-5)
[2025-02-20] MEDS ORDERED: Ondansetron 4 MG Tab.DIS PO PRN (01:56)
[2025-02-20 05:37] LABS: BASOPHILS ABSOLUTE AUTO 0.0 K/mm3 (0.0-0.2); BASOPHILS PERCENT AUTO 0.4 % (0.0-1.0); EOSINOPHILS ABSOLUTE AUTO 0.2 K/mm3 (0.0-0.4); EOSINOPHILS PERCENT AUTO 2.2 % (0.0-6.0); IMMATURE GRAN ABSOLUTE AUTO 0.02 K/mm3 (0.00-0.05); IMMATURE GRAN PERCENT AUTO 0.2 % (0.0-0.4); LYMPHOCYTES ABSOLUTE AUTO 1.5 K/mm3 (1.0-4.8); LYMPHOCYTES PERCENT AUTO 18.8 % (24.0-44.0); MEAN PLATELET VOLUME 9.9 fl (9.4-12.3); MONOCYTES ABSOLUTE AUTO 1.1 K/mm3 (0.0-0.8); MONOCYTES PERCENT AUTO 12.8 % (0.0-8.0); NEUTROPHILS ABSOLUTE AUTO 5.4 K/mm3 (1.8-7.7); NEUTROPHILS PERCENT AUTO 65.6 % (41.0-71.0); NRBC ABSOLUTE 0.00 (0.00-0.02); NRBC PERCENT 0.0 % (0.0-0.2); PLATELET COUNT,PLT 228 K/mm3 (150-400); RED BLOOD CELL COUNT 3.57 M/mm3 (4.10-5.30); WHITE BLOOD CELL COUNT,WBC 8.18 K/mm3 (3.9-11.3)
[2025-02-20 05:59] LABS: A/G RATIO 1.0 (1-2); ALANINE AMINOTRANSFERASE,ALT 48.0 U/L (14-59); ASPARTATE AMNIOTRANSFERASE,AST 23.0 U/L (15-37); BILIRUBIN TOTAL 1.0 mg/dL (0.2-1.0); BLOOD UREA NITROGEN,BUN 20.0 mg/dL (7-18); CARBON DIOXIDE,CO2 30.0 mEq/L (21-32); CHLORIDE,CL 104.0 mEq/L (98-107); CREATININE 1.2 mg/dL (0.55-1.02); EST CRCL DRUG DOSING (CG) 26.12 mL/min; ESTIMATED GFR 44.0 mL/min (>60); GLUCOSE RANDOM 109.0 mg/dL (70-99); POTASSIUM,K 3.2 mEq/L (3.5-5.1); PROTEIN TOTAL,TP 6.8 g/dl (6.4-8.2); SODIUM,NA 144.0 mEq/L (136-145)
[2025-02-20] MEDS ORDERED: Triamcinolone Acetonide 0.1% Crm 15 GM Tube TOP PRN (14:45)
[2025-02-20] MEDS ORDERED: Albuterol 0.042% 1.25 MG/3 ML Neb Soln NEB PRN (14:48)
[2025-02-20] MEDS ORDERED: Labetalol 100 MG/20 ML MDV IVPUSH PRN (15:08)
[2025-02-20] MEDS ORDERED: hydrALAZINE 20 MG/ML SDV IVPUSH PRN (15:08)
[2025-02-20] MEDS ORDERED: Sennosides/Docusate Sodium 50-8.6 MG Tab PO PRN (15:13)
[2025-02-20] MEDS: Potassium Chloride 20 MEQ Tab.ER PO ONE (15:32)
[2025-02-20] MEDS: Heparin Sodium 5,000 Units/ML Vial SUBCUT SCH (15:33)
[2025-02-20] MEDS: Furosemide 20 MG/2 ML VIAL IVPUSH ONE (15:33)
[2025-02-20] MEDS ORDERED: Potassium Chloride 20 MEQ Tab.ER PO SCH (18:00)
[2025-02-21 06:56] LABS: BLOOD UREA NITROGEN,BUN 19.0 mg/dL (7-18); CARBON DIOXIDE,CO2 29.0 mEq/L (21-32); CHLORIDE,CL 106.0 mEq/L (98-107); CREATININE 1.1 mg/dL (0.55-1.02); EST CRCL DRUG DOSING (CG) 28.5 mL/min; ESTIMATED GFR 49.0 mL/min (>60); GLUCOSE RANDOM 123.0 mg/dL (70-99); PHOSPHORUS 4.3 mg/dL (2.6-4.7); POTASSIUM,K 3.6 mEq/L (3.5-5.1); SODIUM,NA 145.0 mEq/L (136-145)
[2025-02-21 07:45] LABS: TSH 2.214 uIU/mL (0.358-3.74); VITAMIN D,25-HYDROXY 40.8 ng/ml (30.0-100.0)
[2025-02-21 07:49] LABS: IRON,FE 44.0 ug/dL (50-170); PERCENT FE SATURATION 14.0 % (20-55)
[2025-02-21 08:01] LABS: FOLIC ACID 50.0 ng/mL (8.6-58.9)
[2025-02-21] MEDS: Potassium Chloride 20 MEQ Tab.ER PO ONE (15:51)
[2025-02-22] MEDS ORDERED: Menthol 10%/Methyl Salicylate 15% 85 GM Tube TOP PRN (07:30)
[2025-02-22] MEDS: Ondansetron 4 MG/2 ML SDV IV PRN (07:56)
[2025-02-22 15:57] LABS: BASOPHILS ABSOLUTE AUTO 0.0 K/mm3 (0.0-0.2); BASOPHILS PERCENT AUTO 0.4 % (0.0-1.0); EOSINOPHILS ABSOLUTE AUTO 0.0 K/mm3 (0.0-0.4); EOSINOPHILS PERCENT AUTO 0.1 % (0.0-6.0); IMMATURE GRAN ABSOLUTE AUTO 0.02 K/mm3 (0.00-0.05); IMMATURE GRAN PERCENT AUTO 0.3 % (0.0-0.4); LYMPHOCYTES ABSOLUTE AUTO 1.2 K/mm3 (1.0-4.8); LYMPHOCYTES PERCENT AUTO 14.9 % (24.0-44.0); MEAN PLATELET VOLUME 10.3 fl (9.4-12.3); MONOCYTES ABSOLUTE AUTO 1.0 K/mm3 (0.0-0.8); MONOCYTES PERCENT AUTO 12.8 % (0.0-8.0); NEUTROPHILS ABSOLUTE AUTO 5.6 K/mm3 (1.8-7.7); NEUTROPHILS PERCENT AUTO 71.5 % (41.0-71.0); NRBC ABSOLUTE 0.00 (0.00-0.02); NRBC PERCENT 0.0 % (0.0-0.2); PLATELET COUNT,PLT 255 K/mm3 (150-400); RED BLOOD CELL COUNT 3.57 M/mm3 (4.10-5.30); WHITE BLOOD CELL COUNT,WBC 7.83 K/mm3 (3.9-11.3)
[2025-02-22 16:19] LABS: BLOOD UREA NITROGEN,BUN 27.0 mg/dL (7-18); CARBON DIOXIDE,CO2 28.0 mEq/L (21-32); CHLORIDE,CL 108.0 mEq/L (98-107); CREATININE 1.3 mg/dL (0.55-1.02); EST CRCL DRUG DOSING (CG) 24.11 mL/min; ESTIMATED GFR 40.0 mL/min (>60); GLUCOSE RANDOM 148.0 mg/dL (70-99); PHOSPHORUS 5.2 mg/dL (2.6-4.7); POTASSIUM,K 4.2 mEq/L (3.5-5.1); SODIUM,NA 146.0 mEq/L (136-145)
[2025-02-23 05:11] LABS: BLOOD UREA NITROGEN,BUN 31.0 mg/dL (7-18); CARBON DIOXIDE,CO2 27.0 mEq/L (21-32); CHLORIDE,CL 106.0 mEq/L (98-107); CREATININE 1.3 mg/dL (0.55-1.02); EST CRCL DRUG DOSING (CG) 24.11 mL/min; ESTIMATED GFR 40.0 mL/min (>60); GLUCOSE RANDOM 142.0 mg/dL (70-99); PHOSPHORUS 4.9 mg/dL (2.6-4.7); POTASSIUM,K 4.1 mEq/L (3.5-5.1); SODIUM,NA 143.0 mEq/L (136-145)
== END 2025-02-23 15:10 | disposition home or self-care (01) | DRG 291 ==
LOC: JD.ED 20:32 → JD.MS 02-20 01:56
PROVIDERS: ADMIT Family Medicine; ATTEND Family Medicine
DX: I11.0 Hypertensive heart disease with heart failure (principal); I50.41 Acute combined systolic (congestive) and diastolic (congestive) heart failure; F02.83 Dementia in other diseases classified elsewhere, unspecified severity, with mood disturbance; F02.84 Dementia in other diseases classified elsewhere, unspecified severity, with anxiety; I24.89 Other forms of acute ischemic heart disease; H54.7 Unspecified visual loss; J44.89 Other specified chronic obstructive pulmonary disease; M19.90 Unspecified osteoarthritis, unspecified site; Z66 Do not resuscitate; G30.9 Alzheimer's disease, unspecified; I25.10 Atherosclerotic heart disease of native coronary artery without angina pectoris; M54.9 Dorsalgia, unspecified; G89.29 Other chronic pain; Z96.649 Presence of unspecified artificial hip joint; R94.4 Abnormal results of kidney function studies; D50.9 Iron deficiency anemia, unspecified; G47.00 Insomnia, unspecified; Z86.16 Personal history of COVID-19; Z90.49 Acquired absence of other specified parts of digestive tract; Z90.710 Acquired absence of both cervix and uterus; I25.2 Old myocardial infarction; Z98.1 Arthrodesis status; Z79.899 Other long term (current) drug therapy; Z79.52 Long term (current) use of systemic steroids; Z95.828 Presence of other vascular implants and grafts
CPT/HCPCS: 36415; 71045; 80053; 81001; 83735; 83880; 84484 ×2; 85025; 93005; 96374; 99285; A9270 ×2; J1938; 71046; 71046-26; 80048; 82306; 82607; 82728; 82746; 82947; 83540; 84100; 84443; 84466; 86140; 87426-QW; 93010; 93306; 94761; 97112-GP; 97116-GP; 97162-GP; 97166-GO; 97530-GO; 99223; 99232; 99238; J1644; J2405

== ENCOUNTER 2025-03-11 16:00 | Observation (INO) | payer MEDICARE, OTHER ==
[2025-03-11] MEDS ORDERED: Sodium Chloride 0.9% 10 ML Syringe FLUSH PRN (16:32)
[2025-03-11 17:01] LABS: BASOPHILS ABSOLUTE AUTO 0.0 K/mm3 (0.0-0.2); BASOPHILS PERCENT AUTO 0.5 % (0.0-1.0); EOSINOPHILS ABSOLUTE AUTO 0.2 K/mm3 (0.0-0.4); EOSINOPHILS PERCENT AUTO 2.0 % (0.0-6.0); IMMATURE GRAN ABSOLUTE AUTO 0.01 K/mm3 (0.00-0.05); IMMATURE GRAN PERCENT AUTO 0.1 % (0.0-0.4); LYMPHOCYTES ABSOLUTE AUTO 1.3 K/mm3 (1.0-4.8); LYMPHOCYTES PERCENT AUTO 17.7 % (24.0-44.0); MEAN PLATELET VOLUME 10.2 fl (9.4-12.3); MONOCYTES ABSOLUTE AUTO 1.1 K/mm3 (0.0-0.8); MONOCYTES PERCENT AUTO 14.4 % (0.0-8.0); NEUTROPHILS ABSOLUTE AUTO 4.9 K/mm3 (1.8-7.7); NEUTROPHILS PERCENT AUTO 65.3 % (41.0-71.0); NRBC ABSOLUTE 0.00 (0.00-0.02); NRBC PERCENT 0.0 % (0.0-0.2); PLATELET COUNT,PLT 208 K/mm3 (150-400); RED BLOOD CELL COUNT 3.77 M/mm3 (4.10-5.30); WHITE BLOOD CELL COUNT,WBC 7.52 K/mm3 (3.9-11.3)
[2025-03-11 17:40] LABS: A/G RATIO 1.0 (1-2); ALANINE AMINOTRANSFERASE,ALT 53 U/L (14-59); ASPARTATE AMNIOTRANSFERASE,AST 34 U/L (15-37); BILIRUBIN TOTAL 1.0 mg/dL (0.2-1.0); BLOOD UREA NITROGEN,BUN 24 mg/dL (7-18); CARBON DIOXIDE,CO2 26 mEq/L (21-32); CHLORIDE,CL 104 mEq/L (98-107); CREATININE 1.3 mg/dL (0.55-1.02); ESTIMATED GFR 40 mL/min (>60); GLUCOSE RANDOM 108 mg/dL (70-99); POTASSIUM,K 3.6 mEq/L (3.5-5.1); PROTEIN TOTAL,TP 6.8 g/dl (6.4-8.2); SODIUM,NA 143 mEq/L (136-145)
[2025-03-11 17:42] LABS: TROPONIN I HIGH SENSITIVITY 75 pg/mL (<=51)
[2025-03-11] MEDS: Furosemide 40 MG/4 ML VIAL IVPUSH ONE (17:59)
[2025-03-11] MEDS ORDERED: Ondansetron 4 MG Tab.DIS PO PRN (19:20)
[2025-03-11] MEDS ORDERED: Naloxone 0.4 MG/ML SDV IVPUSH PRN (19:20)
[2025-03-12 03:16] LABS: BLOOD UREA NITROGEN,BUN 22.0 mg/dL (7-18); CARBON DIOXIDE,CO2 27.0 mEq/L (21-32); CHLORIDE,CL 104.0 mEq/L (98-107); CREATININE 1.4 mg/dL (0.55-1.02); EST CRCL DRUG DOSING (CG) 22.39 mL/min; ESTIMATED GFR 36.0 mL/min (>60); GLUCOSE RANDOM 137.0 mg/dL (70-99); POTASSIUM,K 3.1 mEq/L (3.5-5.1); SODIUM,NA 140.0 mEq/L (136-145)
[2025-03-12 03:18] LABS: TROPONIN I HIGH SENSITIVITY 98.0 pg/mL (<=51)
[2025-03-12] MEDS ORDERED: Albuterol 0.042% 1.25 MG/3 ML Neb Soln NEB PRN (09:43)
[2025-03-12] MEDS: Potassium Chloride 20 MEQ Tab.ER PO ONE (12:24)
[2025-03-12] MEDS: LORazepam 2 MG/ML SDV IVPUSH PRN (20:37)
== END 2025-03-15 12:25 | disposition hospice, home (50) ==
LOC: JD.ED 16:00 → JD.MS 19:20
PROVIDERS: ADMIT Family Medicine; ATTEND Internal Medicine
DX: I11.0 Hypertensive heart disease with heart failure (principal); I50.43 Acute on chronic combined systolic (congestive) and diastolic (congestive) heart failure; J44.9 Chronic obstructive pulmonary disease, unspecified; F03.90 Unspecified dementia, unspecified severity, without behavioral disturbance, psychotic disturbance, mood disturbance, and anxiety; E87.6 Hypokalemia; I25.10 Atherosclerotic heart disease of native coronary artery without angina pectoris; E78.5 Hyperlipidemia, unspecified; J45.909 Unspecified asthma, uncomplicated; J90 Pleural effusion, not elsewhere classified; I34.81 Nonrheumatic mitral (valve) annulus calcification; Z51.5 Encounter for palliative care; Z79.899 Other long term (current) drug therapy
CPT/HCPCS: 36415; 71046; 80048; 80053; 83880; 84484; 85025; 86140; 93005; 94640; 94760; 96374; 99285; A9270; J1938; J2060; J2270; 93010; 96375; G0378